=== PATIENT | male | born 1930 | race Caucasian/White ===

== ENCOUNTER → 2016-06-10 | Outpatient (CLI) | payer OTHER ==
[~2016-06-10] VITALS: Ht 165.1 cm; Wt 90.9 kg
[~2016-06-10] MED LIST: ACET-1256 PO; ALBUAER19 INH; ASPI325T39 PO; ATV5 PO; CARB0.5D28 OPB; CETI10TA84 PO; DRGTP25 TD; EZET10TA47 PO; FLM4; FLM4 PO; GLIP2.5T11 PO; HYDR25TA4 PO; LEVO100T PO; LISI40TA PO; MLXC PO; MULT-506 PO; NEBULIZER; PRAV20TA PO; RXNS5 PO; SALI0.6510 NAE; ULT50X PO
[2016-06-10 08:45] VITALS: Ht 165.1 cm; Wt 90.9 kg
--- NOTE | 2016-06-10 09:23 | PAT Medication Instructions ---
Service Date Jun 10, 2016. Current Home Medication List Acetaminophen (Tylenol), 1-2 TAB PO PRN PRN for Pain Carboxymethylcellulose Sodium (Refresh Tears), 1-2 DROPS OPB for DRY EYES,ITCH Hydrochlorothiazide (Hctz), 25 MG PO QAM Levothyroxine Sodium (Synthroid), 100 MCG PO QAM Lisinopril (Zestril), 40 MG PO QAM Saline ([place]), 2 SPRAYS YAW UD Tamsulosin HCl (Tamsulosin HCl), Unknown Dose QAM [Nebulizer ], Unknown Dose Medication Instructions For Your Scheduled Surgery - Hold the following medications the morning of surgery: Tamsulosin HCl (Tamsulosin HCl), Unknown Dose QAM Lisinopril (Zestril), 40 MG PO QAM Hydrochlorothiazide (Hctz), 25 MG PO QAM - Take the following medications the morning of surgery with a sip of water: Saline ([place]), 2 SPRAYS YAW UD Levothyroxine Sodium (Synthroid), 100 MCG PO QAM Acetaminophen (Tylenol), 1-2 TAB PO PRN PRN for Pain (if needed) Carboxymethylcellulose Sodium (Refresh Tears), 1-2 DROPS OPB for DRY EYES,ITCH ( if needed) [Nebulizer ], Unknown Dose - Take the following medications as scheduled the night before surgery: Acetaminophen (Tylenol), 1-2 TAB PO PRN PRN for Pain (if needed) Carboxymethylcellulose Sodium (Refresh Tears), 1-2 DROPS OPB for DRY EYES,ITCH (if needed) [Nebulizer ], Unknown Dose If you have any questions please call us at [phone] (Yanet Cartwright PA-C) or [phone] or [phone]
[2016-06-10 10:20] LABS: BASO % 0.5 %; BASO ABS # 0.05 K/uL (0-0.2); COMPLETE YES; EOS % 0.9 %; HEMATOCRIT 42.9 % (42-52); IG% 0.3 %; LYMPH % 9.5 %; LYMPH ABS # 0.89 K/uL (1.2-3.4); MEAN CELL VOLUME 92.9 fL (80-100); MEAN CORPUSCULAR HGB CONC 33.3 g/dl (32-36); MEAN PLATELET VOLUME 11.3 fL (7.4-10.4); MONO % 8.1 %; NEUT % 80.7 %; PLATELET COUNT 54 K/uL (130-400); RED BLOOD COUNT 4.62 M/uL (4.7-6.1); WHITE BLOOD COUNT 9.34 K/uL (4.8-10.8)
[2016-06-10 10:21] LABS: PLT ESTIMATE DECREASED
[2016-06-10 10:33] LABS: BUN/CREATININE RATIO 17.5 (10-20); CALCIUM 8.8 mg/dl (8.5-10.1); CREATININE 1.8 mg/dl (0.60-1.40); POTASSIUM 5.6 mmol/L (3.5-5.1)
== END | disposition home or self-care (01) ==
LOC: EDSTATUS 08:45 → C.LAB 09:00
PROVIDERS: ATTEND Urology
DX: Z01.812 Encounter for preprocedural laboratory examination (principal)